=== PATIENT | male | born 1970 | race African-American/Black ===

== ENCOUNTER 2017-11-26 16:36 | Emergency (ER) | payer SELFPAY ==
[2017-11-26] MEDS ORDERED: NA CHLORIDE 0.9% 1,000 ML ONE (17:25)
[2017-11-26 17:42] LABS: Absolute Lymphocytes (CBC) 1.5 K/uL (0.7-4.9); Absolute Monocytes 0.5 K/uL (0.1-1.3); Absolute Neutrophil 4.5 K/uL (1.8-8.0); Basophils % 1.3 % (0-1.3); Eosinophils % 2.1 % (0-4.4); MCH 27.7 pg (27.0-35.0); MCV 83.1 fL (80-100); MPV 9.1 fL (7.6-11.3); Monocytes % 7.2 % (3.3-12.3); RBC Red Blood Cell Count 5.42 M/uL (4.33-5.43)
[2017-11-26 17:51] LABS: Bicarbonate 25 mEq/L (21-31); Glucose Level 282 mg/dL (65-120); Potassium 4.3 mEq/L (3.6-5.0); Sodium Level 135 mEq/L (135-145)
[2017-11-26 17:52] LABS: BUN Blood Urea Nitrogen 16 mg/dL (6-20)
--- NOTE | 2017-11-26 18:01 | EDPHYS ---
Physician Documentation [facility] Name: Eduardo Bedoya Jr Age: 47 yrs Sex: Male : 1970 Arrival Date: 11/26/2017 Time: 16:41 Bed 14 Private MD: ED Physician Yousuf Daly HPI: 11/26 17:21 This 47 yrs old Black Male presents to ER via Ambulatory with complaints of High Blood jr8 Sugar. 17:21 Patient stated that he was at work physical today. Was noted that his blood sugar and jr8 pressure were both elevated more then then normally are. Has history of HTN and DM2 but not compliant with medications. Has PCP appointment soon to get back on track. Denies any current s/s . Severity of symptoms: At their worst the symptoms were mild in the emergency department the symptoms are unchanged. It is unknown whether or not the patient has had similar symptoms in the past. The patient has not recently seen a physician. Historical: - Allergies: 16:52 PENICILLINS; hj - Home Meds: 16:52 metformin 500 mg Oral tab 1 tab 2 times per day [Active]; carvedilol oral oral [Active];hj - PMHx: 16:52 Hypertension; Diabetes - NIDDM; hj - PSHx: 16:52 None; hj - Immunization history:: Adult Immunizations up to date. - Social history:: Smoking status: Patient/guardian denies using tobacco. ROS: 17:23 Eyes: Negative for injury, pain, redness, and discharge, ENT: Negative for injury, jr8 pain, and discharge, Neck: Negative for injury, pain, and swelling, Cardiovascular: Negative for chest pain, palpitations, and edema, Respiratory: Negative for shortness of breath, cough, wheezing, and pleuritic chest pain, Abdomen/GI: Negative for abdominal pain, nausea, vomiting, diarrhea, and constipation, Back: Negative for injury and pain, MS/Extremity: Negative for injury and deformity, Skin: Negative for injury, rash, and discoloration, Neuro: Negative for headache, weakness, numbness, tingling, and seizure. Exam: 17:23 Eyes: Pupils equal round and reactive to light, extra-ocular motions intact. Lids and jr8 lashes normal. Conjunctiva and sclera are non-icteric and not injected. Cornea within normal limits. Periorbital areas with no swelling, redness, or edema. ENT: Nares patent. No nasal discharge, no septal abnormalities noted. Tympanic membranes are normal and external auditory canals are clear. Oropharynx with no redness, swelling, or masses, exudates, or evidence of obstruction, uvula midline. Mucous membranes moist. Neck: Trachea midline, no thyromegaly or masses palpated, and no cervical lymphadenopathy. Supple, full range of motion without nuchal rigidity, or vertebral point tenderness. No Meningismus. Cardiovascular: Regular rate and rhythm with a normal S1 and S2. No gallops, murmurs, or rubs. Normal PMI, no JVD. No pulse deficits. Respiratory: Lungs have equal breath sounds bilaterally, clear to auscultation and percussion. No rales, rhonchi or wheezes noted. No increased work of breathing, no retractions or nasal flaring. Abdomen/GI: Soft, non-tender, with normal bowel sounds. No distension or tympany. No guarding or rebound. No evidence of tenderness throughout. Back: No spinal tenderness. No costovertebral tenderness. Full range of motion. Skin: Warm, dry with normal turgor. Normal color with no rashes, no lesions, and no evidence of cellulitis. MS/ Extremity: Pulses equal, no cyanosis. Neurovascular intact. Full, normal range of motion. Neuro: Awake and alert, GCS 15, oriented to person, place, time, and situation. Cranial nerves II-XII grossly intact. Motor strength 5/5 in all extremities. Sensory grossly intact. Cerebellar exam normal. Normal gait. Vital Signs: 16:52 BP 143 / 101; Pulse 95; Resp 18; Temp 99.1(TE); Pulse Ox 99% on R/A; Weight 113.4 kg; Height 6 ft. 1 in. (185.42 cm); Pain 0/10; 18:29 BP 131 / 82; Pulse 73; Resp 17; Pulse Ox 98% on R/A; mh5 16:52 Body Mass Index 32.98 (113.40 kg, 185.42 cm) MDM: 16:56 Patient medically screened. [facility] 17:59 Data reviewed: vital signs, nurses notes, lab test result(s), and as a result, I will jr8 discharge patient. Data interpreted: Pulse oximetry: on room air is 99 %. Interpretation: normal. Counseling: I had a detailed discussion with the patient and/or guardian regarding: the historical points, exam findings, and any diagnostic results supporting the discharge/admit diagnosis, lab results, the need for outpatient follow up, a family practitioner, to return to the emergency department if symptoms worsen or persist or if there are any questions or concerns that arise at home. 11/26 17:04 Order name: CBC with Diff; Complete Time: 17:59 8 11/26 17:04 Order name: Basic Metabolic Panel; Complete Time: 17:59 8 11/26 17:04 Order name: IV; Complete Time: 18:12 jr8 11/26 17:04 Order name: Urine Dipstick-Ancillary (obtain specimen); Complete Time: 18:12 8 11/26 18:09 Order name: Urine Dipstick--Ancillary (enter results) ag 11/26 17:04 Order name: Glucose Level; Complete Time: 18:12 Administered Medications: 17:50 Drug: NS 0.9% 1000 ml Route: IV; Rate: 1000 ml; Site: left hand; 19:32 Follow up: IV Status: Completed infusion; IV Intake: 1000ml Point of Care Testing: Blood Glucose: 16:52 Blood Glucose: 252 mg/dL; Ranges: Critical Glucose Levels:Adult <50 mg/dl or >400 mg/dl <40 mg/dl or >180 mg/dl Disposition: 19:48 Co-signature as Attending Physician, Yousuf Daly MD. Disposition: 11/26/17 18:00 Discharged to Home. Impression: Diabetes mellitus due to underlying condition with hyperglycemia, Essential (primary) hypertension. - Condition is Stable. - Discharge Instructions: Hypertension, Blood Glucose Monitoring, Adult. - Prescriptions for Jardiance 10 mg Oral tablet - take 1 tablet by ORAL route once daily in the morning; 30 tablet. - Medication Reconciliation Form, Thank You Letter, Antibiotic Education, Prescription Opioid Use form. - Follow up: Fredis Norris MD; When: 1 - 2 days; Reason: Recheck today's complaints, Continuance of care, Re-evaluation by your physician. - Problem is new. - Symptoms have improved. Signatures: Dispatcher [employer] Denice See RN RN Brandon Kwok PA PA jr8 Rony Gaming RN RN Yousuf Deras MD MD gs Corrections: (The following items were deleted from the chart) 17:23 17:21 Patient stated that he was at work physical today. Was noted that his blood sugar jr8 and pressure were both elevated more then then normally are. Has history of HTN and DM2 but not compliant with medications. Has PCP appointment soon to get back on track . jr8 18:52 18:00 11/26/2017 18:00 Discharged to Home. Impression: Diabetes mellitus due to ch underlying condition with hyperglycemia; Essential (primary) hypertension. Condition is Stable. Forms are Medication Reconciliation Form, Thank You Letter, Antibiotic Education, Prescription Opioid Use. Follow up: Fredis Norris; When: 1 - 2 days; Reason: Recheck today's complaints, Continuance of care, Re-evaluation by your physician. Problem is new. Symptoms have improved. jr8
--- NOTE | 2017-11-26 18:01 | ER ---
Nurse's Notes [facility] Name: Eduardo Bedoya Jr Age: 47 yrs Sex: Male : 1970 Arrival Date: 11/26/2017 Time: 16:41 Bed 14 Private MD: Diagnosis: Diabetes mellitus due to underlying condition with hyperglycemia;Essential (primary) hypertension Presentation: 11/26 16:50 Presenting complaint: Patient states: my sugar is pauline high and it was on 300's since hj this morning;. Transition of care: patient was not received from another setting of care. Onset of symptoms was November 26, 2017. Initial Sepsis Screen: Does the patient meet any 2 criteria? No. Patient's initial sepsis screen is negative. Does the patient have a suspected source of infection? No. Patient's initial sepsis screen is negative. Care prior to arrival: None. 16:50 Method Of Arrival: Ambulatory 16:50 Acuity: LAINA 3 Triage Assessment: 16:52 General: Appears in no apparent distress. uncomfortable, Behavior is calm, cooperative, hj appropriate for age. Pain: Denies pain. Historical: - Allergies: 16:52 PENICILLINS; hj - Home Meds: 16:52 metformin 500 mg Oral tab 1 tab 2 times per day [Active]; carvedilol oral oral [Active]; - PMHx: 16:52 Hypertension; Diabetes - NIDDM; - PSHx: 16:52 None; hj - Immunization history:: Adult Immunizations up to date. - Social history:: Smoking status: Patient/guardian denies using tobacco. Screenin:11 Abuse screen: Denies threats or abuse. Denies injuries from another. Nutritional ch screening: No deficits noted. Tuberculosis screening: No symptoms or risk factors identified. Fall Risk None identified. Assessment: 17:57 General: Appears in no apparent distress. comfortable, Behavior is calm, cooperative, appropriate for age. Pain: Denies pain. Neuro: No deficits noted. Level of Consciousness is awake, alert, obeys commands, Oriented to person, place, time, situation, Director [employer] are equal bilaterally Moves all extremities. Full function. Cardiovascular: Heart tones S1 S2 present. Respiratory: Airway is patent Trachea midline Respiratory effort is even, unlabored, Breath sounds are clear bilaterally. GI: No signs and/or symptoms were reported involving the gastrointestinal system. Abdomen is round non-distended. 18:11 Reassessment: Patient appears in no apparent distress at this time. Patient and/or ch family updated on plan of care and expected duration. Pain level reassessed. Patient is alert, oriented x 3, equal unlabored respirations, skin warm/dry/pink. Patient states feeling better. Patient states symptoms have improved. Vital Signs: 16:52 BP 143 / 101; Pulse 95; Resp 18; Temp 99.1(TE); Pulse Ox 99% on R/A; Weight 113.4 kg; hj Height 6 ft. 1 in. (185.42 cm); Pain 0/10; 18:29 BP 131 / 82; Pulse 73; Resp 17; Pulse Ox 98% on R/A; mh5 16:52 Body Mass Index 32.98 (113.40 kg, 185.42 cm) ED Course: 16:41 Patient arrived in ED. sb2 16:51 Triage completed. hj 16:52 Arm band placed on right wrist. hj 16:56 Brandon Kwok PA is PHCP. jr8 16:56 Yousuf Daly MD is Attending Physician. jr8 17:08 Denice Vega, MERRICK is Primary Nurse. ch 17:45 No apparent distress. Resting quietly. ch 17:45 No provider procedures requiring assistance completed. Inserted saline lock: 20 gauge ch in left hand, using aseptic technique. Blood collected. 18:00 Fredis Norris MD is Referral Physician. jr8 18:11 Patient has correct armband on for positive identification. Placed in gown. Bed in low ch position. Call light in reach. Side rails up X 1. Adult w/ patient. Pulse ox on. NIBP on. 18:30 IV discontinued, intact, bleeding controlled, No redness/swelling at site. Pressure ch dressing applied. Administered Medications: 17:50 Drug: NS 0.9% 1000 ml Route: IV; Rate: 1000 ml; Site: left hand; 19:32 Follow up: IV Status: Completed infusion; IV Intake: 1000ml Point of Care Testing: Blood Glucose: 16:52 Blood Glucose: 252 mg/dL; Ranges: Intake: 19:32 IV: 1000ml; Total: 1000ml. ch Outcome: 18:00 Discharge ordered by . jr8 18:52 Patient left the ED. 19:32 Discharged to home ambulatory. 19:32 Condition: stable 19:32 Discharge instructions given to patient, Instructed on discharge instructions, follow up and referral plans. medication usage, Demonstrated understanding of instructions, follow-up care, medications, Prescriptions given X 1. Signatures: Denice Vega, RN Brandon Ferguson ch, PA PA jr8 Rony Gaming RN RN hj Martinez, Maria 5 Joi Gutierrez 2
[2017-11-26 19:11] LABS: Urine Blood TRACE (NEG); Urine Glucose 2+ (NEG); Urine Protein 1+ (NEG); Urine pH 5.5 (5.0-7.0)
== END 2017-11-26 18:52 | disposition home or self-care (01) ==
LOC: ER 16:36
DX: E08.65 Diabetes mellitus due to underlying condition with hyperglycemia (principal); I10 Essential (primary) hypertension; Z88.0 Allergy status to penicillin
CPT/HCPCS: 36415; 80048; 81003; 82962; 85025; 96360; 96361; 99284; J7030